=== PATIENT | female | born 1935 | race Two or more races ===

== ENCOUNTER 2017-01-19 13:46 | Emergency (ER) | payer MEDICARE, OTHER ==
[~2017-01-19] VITALS: Ht 160 cm; Wt 56.7 kg
[~2017-01-19 13:46] MED LIST: ALLEGRA ALLERGY60 MG PO; AMLODIPINE BESY10 MG ORAL; BENADRYL ALLERG25 MG PO; BENAZEPRIL GT; BENAZEPRIL PO; CELEBREX200 MG PO; CIPRO500 MG PO; COLACE100 MG ORAL; FOSAMAX70 MG/75 M PO; GLIMEPIRIDE1 MG ORAL; LORATADINE10 MG PO; LOVASTATIN20 MG PO; LOVENOX10 M1 SUBQ; METAMUCIL1 PKT PO; METFORMIN HCL850 MG PO; NORCO 5-325 TA1 EACH ORAL; NORCO 5-325 TA1 EACH PO; NORCO 7.5-3251 EACH PO; PATANOL1 DROP; PERI-COLACE TA1 EACH PO; RESTORIL7.5 MG PO; SIMVASTATIN20 MG PO; VIT B12 PO; VITAMIN D50000 UNIT PO; [UNRECOGNIZED DRUG - OTHER] OD
[2017-01-19] MEDS ORDERED: Tetracaine 0.5% Opth Soln RIGHT EYE ONE (14:30)
[2017-01-19] MEDS ORDERED: ACETAMINOPHEN-1 EAC1 ORAL (14:46)
[2017-01-19] MEDS ORDERED: OFLOXACIN10 ML OP (14:46)
[2017-01-19 14:59] VITALS: BP 154/70
--- NOTE | 2017-01-19 15:26 | Emergency Room Report ---
History of Present Illness General Chief Complaint: Eye Problems Present Illness HPI The patient is an 81-year-old female brought in by daughter for right eye pain. The patient states that she noticed a white discharge and pain of the eye which began 3 days prior. Pain is now an 8/10 burning sensation it is worse with light. She also admits to slight decreased vision out of the right eye. She admits to waking up with the crusting of the eyelids. She denies any other symptoms including N, V, F, chills, MCNALLY, dizziness (YASMANI ANGLIN P.A.) Allergies: Coded Allergies: No Known Allergies (Unverified , 02/09/12) Patient History Past Medical History: see triage record Pertinent Family History: none Reviewed Nursing Documentation: PMH: Agreed, PSxH: Agreed (YASMANI ANGLIN P.A.) Nursing Documentation-PMH Hx Cardiac Problems: Yes - high cholesterol Hx Hypertension: Yes Hx Diabetes: Yes - type 2 Hx Cancer: No Hx Gastrointestinal Problems: No Hx Neurological Problems: No Hx Dementia: Yes (YASMANI ANGLIN P.A.) Review of Systems All Other Systems: negative except mentioned in HPI (YASMANI ANGLIN P.A.) Physical Exam Vital Signs Date Time Temp Pulse Resp B/P (MAP) Pulse Ox O2 Delivery O2 Flow Rate FiO2 01/19/17 13:55 98.4 70 20 171/65 99 Room Air Sp02 EP Interpretation: reviewed, normal General Appearance: no apparent distress, alert, GCS 15, non-toxic Head: normocephalic, atraumatic Eyes: right eye other - White crusting lower eyelid, bilateral eye PERRL, bilateral eye EOMI ENT: hearing grossly normal, normal pharynx, no angioedema, normal voice Neurologic: alert, oriented x3, responsive, motor strength/tone normal, sensory intact, speech normal Psychiatric: judgement/insight normal, memory normal, mood/affect normal, no suicidal/homicidal ideation Skin: normal color, no rash, warm/dry, well hydrated (YASMANI ANGLIN P.A.) Medical Decision Making PA Attestation Dr. Watson is my supervising physician. Patient management was discussed with my supervising physician (YASMANI ANGLIN P.AKay) Medicare Attestation The history of Johan Diez has been reviewed and management options for her have been examined and discussed by Robert Watson. I have personally examined and interviewed the patient. (ROBERT WATSON M.D.) Diagnostic Impression: Primary Impression: Conjunctivitis Qualified Codes: H10.31 - Unspecified acute conjunctivitis, right eye ER Course The patient is an 81-year-old female brought in by daughter for right eye pain. Differential diagnoses considered but not limited to allergic conjunctivitis, bacterial conjunctivitis, viral conjunctivitis, blepharitis, hordeolum, glaucoma , among others PE: HTN. Otherwise WNL. NAD HEENT: PERRL. R eye has white crusting lower eyelid. No edema. No erythema. + injection of R eye. EOMI Tetracaine applied to R eye. IOP of R eye measured at an average of 11 and 12. She will be treated for bacterial conjunctivitis and needs to FU with ophthalmology [facility]. (YASMANI ANGLIN P.A.) Last Vital Signs Date Time Temp Pulse Resp B/P (MAP) Pulse Ox O2 Delivery O2 Flow Rate FiO2 01/19/17 13:55 98.4 70 20 171/65 99 Room Air Status: improved (YASMANI ANGLIN P.A.) Disposition: HOME, SELF-CARE Condition: Improved Scripts Acetaminophen With Codeine (T#3) (TYLENOL #3 TAB*) Y Tab 1 TAB ORAL Q6HR Y for For Pain, #10 TAB Prov: YASMANI ANGLIN P.A. 01/19/17 Ofloxacin (Ofloxacin) 5 Ml Drops 2 DROP OP Q6HR for 7 Days, #5 ML Prov: YASMANI ANGLIN P.A. 01/19/17 Patient Instructions: Bacterial Conjunctivitis Additional Instructions: I discussed my findings with the patient. All questions and concerns have been answered. Treatment and medication compliance have been addressed. I advised the patient that they need to follow up with PMD in 3-5 days. Return to ED if symptoms worsen, new symptoms arise, or if needed for any reason. Patient verbalized understanding of discharge instructions. 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 Jan 19, 2017 15:46
== END 2017-01-19 14:54 | disposition home or self-care (01) ==
LOC: EMR 14:30
DX: H57.11 Ocular pain, right eye (principal); H10.31 Unspecified acute conjunctivitis, right eye; I10 Essential (primary) hypertension; E11.9 Type 2 diabetes mellitus without complications; F03.90 Unspecified dementia, unspecified severity, without behavioral disturbance, psychotic disturbance, mood disturbance, and anxiety
CPT/HCPCS: 99284